=== PATIENT | female | born 1990 | race Caucasian/White ===

== ENCOUNTER 2017-01-26 06:13 | Emergency (ER) | payer OTHER ==
--- NOTE | 2017-01-26 06:40 | ERNOTE ---
Abdominal HPI - General Chief Complaint: OB Screening Time Seen by Provider: 01/26/17 06:37 Source: patient Exam Limitations: no limitations - Immun/Allergies/Home Medications Immunizatons: IMMUNIZATION HX Immunizations Up to Date Yes History of Influenza Vaccine No Hx Pneumococcal Vaccination No Allergies/Adverse Reactions: Allergies amoxicillin Adverse Reaction (Verified 01/26/17 07:17) Home Medications: HOME MEDICATIONS NK [No Home Medication] 01/26/17 [Last Taken Unknown] - History of Present Illness Narrative: Pt is 6 wk GA and has been spotting for 5 days. Overnight she began bleeding and passing clots. Pt saw OB yesterday and had HCG drawn. Blood type received from [facility] where she delivered her first child and is A+. Timing: getting worse Quality: moderate, cramping Activities at Onset: sleep Associated Symptoms: Present: denies symptoms Prior Abdominal Problems: Present: none Review of Systems - Review of Systems Constitutional: Absent: recent illness, fever EYE: Present: no symptoms reported ENT: Present: no symptoms reported Respiratory: Present: no symptoms reported Cardiology: Present: no symptoms reported Gastrointestinal/Abdominal: Absent: abdominal pain Genitourinary: Present: See HPI Musculoskeletal: Present: no symptoms reported Skin: Present: no symptoms reported Neurological: Present: no symptoms reported Endocrine: Present: no symptoms reported Hematologic/Lymphatic: Present: no symptoms reported Psych: Present: no symptoms reported - Patient's Past Medical History Patient History - Medical: No pertinent hx Patient History - Cardiac/Respiratory: No pertinent hx Patient History - Cancer: No Hx of Cancer Patient History - Surgical Procedures: No surgical history Patient History - Other: None LMP (females 10-50): LMP (Calendar): 12/14/16 - Social History Living Situations: home Abuse History: No History of abuse Psych History: No pertinent hx Smoking Status: Never smoker Alcohol Use: none Drug Use: none - Immunizations Immunizations Up to Date: Yes Hx Pneumococcal Vaccination: No History of Influenza Vaccine: No Physical Exam - Physical Exam General Appearance: Present: wd/wn, alert, no apparent distress Head Exam: Present: normal inspection Eye Exam: Normal inspection: bilateral Extremity Exam: Present: normal inspection, normal range of motion, no edema Neurological Exam: Present: alert, oriented, normal mood/affect Skin Exam: Present: normal color, warm/dry Pelvic Exam: Present: active bleeding - dark blood and clots in vag. vault. Small amount of vessels or tissue in the cervical os. Os closed. Absent: cervical motion tendernes, tender adnexa ED Progress - Results and Orders Patient's Lab Results:: I have reviewed the patient's lab results. Results and Orders: Laboratory Tests 01/26/17 07:15 WBC 10.6 H Hgb 13.3 Hct 38.6 Plt Count 211 Neutrophils % 77.1 H - Vital Signs Patient's Vital Signs:: I have reviewed the patient's vital signs. Vital Signs: Vital Signs 01/26/17 06:19 Temperature 37.0 C Pulse Rate 115 H Respiratory 16 Rate Blood Pressure 109/53 O2 Sat by Pulse 96 Oximetry - Progress/Reassessment Chief Complaint: OB Screening Progress Note-Subjective: 01/26/17 07:49 discussed vag bleeding and risk of miscarriage. Discussed when to return if bleeding increases. Pt and mother express understanding Departure - Departure Clinical Impression: Miscarriage, threatened, early Disposition: Home Follow Up Needed Condition: Fair Instructions: Threatened Miscarriage, [id number] Additional Instructions: Talk with Dr. Weir about repeating the lab work they did yesterday. Follow up as needed Referrals: María Weir DO [Primary Care Provider] -
[2017-01-26 07:22] LABS: Hematocrit 38.6 % (37.0-47.0); Hemoglobin 13.3 gm/dL (12.5-16.0); Mean Cell Volume 80.2 fl (78-100); Mean Corpuscular Hemoglobin 27.7 pg (27-31); Mean Corpuscular Hgb Conc 34.5 g/dl (32-36); Mean Platelet Volume 11.7 fl (6.0-9.5); Neutrophil # 8.1 K/mm3 (1.3-6.0); Neutrophil % 77.1 % (42-75.0); Platelet Count 211 K/mm3 (150-450); Red Blood Count 4.81 M/mm3 (4.2-5.4); Red Cell Distribution Width 12.6 % (11.5-14.0); White Blood Count 10.6 K/mm3 (4.0-10.5)
[2017-01-26] MEDS ORDERED: ACETAMINOPHEN 500 MG TABLET PO ONE (07:29)
[2017-01-26 07:35] VITALS: BP 105/68
== END 2017-01-26 07:50 | disposition home or self-care (01) ==
LOC: ER 06:13
DX: O20.0 Threatened abortion (principal); Z3A.01 Less than 8 weeks gestation of pregnancy; Z33.1 Pregnant state, incidental

== ENCOUNTER 2019-09-05 19:54 | Inpatient (IN) ==
[2019-09-05] MEDS ORDERED: RINGER'S SOLUTION,LACTATED 1,000 ML IV ONE (21:11)
[2019-09-05] MEDS ORDERED: OXYTOCIN/DEXTROSE 5%-WATER 30 UNITS/500 ML BAG IV ONE (21:11)
[2019-09-05] MEDS ORDERED: ONDANSETRON 4 MG TAB.RAPDIS PO PRN (21:11)
[2019-09-05] MEDS ORDERED: RINGER'S SOLUTION,LACTATED 1,000 ML IV PRN (21:11)
--- NOTE | 2019-09-05 21:53 | HP ---
Chief Complaint - Chief Complaint Date of Service: 09/05/19 Time of Service: 21:38 Chief Complaint: Labor History of Present Illness: 28 year old at 39w 3d who presents to labor and delivery in labor. She reports regular ctx. She reports bloody show but no heavy vaginal bleeding. Denies lof. Fetus is active. No other complaints Medical History (Last Reviewed 09/05/19 @ 21:43 by Ita Cruz MD) Anemia Onset Date: 09/21/17 2018 & 2019-w/pregnancies Body piercing Onset Date: Unknown Hemorrhoids Onset Date: Unknown Scoliosis Onset Date: Unknown mild-no tx Tattoos Onset Date: Unknown Hypoglycemia Onset Date: Unknown as child Onset Date: 05/25/17 delivery Onset Date: 11/26/17 36 wks, PROM premature rupture of membranes Onset Date: 11/26/17 11/26/2017 SAB (spontaneous ) Onset Date: 02/17/17 Surgical History: Surgical History (Last Reviewed 09/05/19 @ 21:43 by Ita Cruz MD) No significant past surgical history Family History: Family History (Last Reviewed 09/05/19 @ 21:43 by Ita Cruz MD) Grandmother Heart disease Mother COPD (chronic obstructive pulmonary disease) Ectopic Father Medical history unknown Social History: (Last Reviewed 09/05/19 @ 21:44 by Ita Cruz MD) Social History: adopted: No mcc: No Marital status: household members: children, spouse number of children: 2 current occupational status: employed current occupation: Cleaning current occupational exposures/hazards: No Highest education level completed: high school graduate Sexually Active: Yes Service: No Tobacco: Smoking Status: Former smoker Alcohol: alcohol intake: never Substance Use: substance use type: former substance user Dietary Habits: caffeine: Yes caffeine comment: 3-5/day Type: carbonated beverages, coffee, tea Exercise: frequency: other Jeannie/Buddhism: agree to transfusion: Yes Review Of Systems (GEN) - Review of Systems Generalized/Overall Review: Present: No Symptoms Reported Misc: All systems neg except as marked Immunizations: IMMUNIZATION HX Immunizations Up to Date Yes History of Influenza Vaccine No Hx Pneumococcal Vaccination No Allergies/Adverse Reactions: Allergies Allergy/AdvReac Type Severity Reaction Status Date / Time amoxicillin AdvReac rash Verified 09/05/19 20:00 Home Medications: HOME MEDICATIONS [id number] 400 mcg-om3 35 mg-dha 25 mg-epa 5 mg-fish oil chewable tablet 2 tab PO DAILY tab 01/25/19 [Last Taken 09/04/19 22:00] ferrous sulfate 325 mg (65 mg iron) tablet 325 mg PO DAILY #30 tab 06/05/19 [Last Taken 09/04/19 22:00] Exam - Exam Vital Signs: Vital Signs - Last Taken Temp 36.7 C 09/05/19 21:02 Pulse 81 09/05/19 21:02 Resp 18 09/05/19 21:02 BP 124/82 09/05/19 21:02 Pulse Ox 98 09/05/19 21:02 Constitutional: Present: Alert, Oriented x3, Cooperative, No distress ENT Exam: Present: hearing grossly normal Eye Exam: bilateral eye: normal inspection Neck: Present: normal inspection Back Exam: Present: normal inspection, no CVA tenderness, no vertebral tenderness Breasts: Present: Exam deferred Respiratory: Present: lungs clear, normal breath sounds Cardiovascular/Chest: Present: regular rate, rhythm Abdomen: Present: Normal bowel sounds, soft, nontender, nondistended /Rectal: Present: Other - 4/60/-3 AROM for light meconium Extremity: Present: non-tender, no calf tenderness Skin Exam: Present: normal color, warm/dry, no cyanosis Appearance: Present: appropriate appearance Eye contact: Present: cooperative, good eye contact, normal speech Thoughts: Present: normal thought pattern Assessment/Plan - Narrative Narrative: 28 year old at 39w 3d 1. Admit for labor. AROM done. Pitocin PRN 2. History of THC use this : UDS on admission, send cord segment at delivery 3. Anemia: on PO iron 4. GBS negative: prophylaxis not indicated FHT cat 1 - Assessment/Plan (1) 39 weeks gestation of Problem: Acute (2) Anemia Problem: Acute Qualifiers: Anemia type: unspecified type Qualified Code(s): D64.9 - Anemia, unspecified (3) History of marijuana use Assessment: UDS on admission to L&D Cord segment will be sent at delivery Problem: Acute
[2019-09-05 22:11] LABS: Cocaine Ur Negative (NEGATIVE); Urine Barbiturate Negative (NEGATIVE); Urine Benzodiazepines Negative (NEGATIVE); Urine Opiates Negative (NEGATIVE); Urine PCP Negative (NEGATIVE); Urine THC Negative (NEGATIVE)
[2019-09-05] MEDS ORDERED: ONDANSETRON HCL/PF 2 MG/ML VIAL IV PRN (22:26)
[2019-09-05] MEDS ORDERED: BUPIVACAINE HCL/0.9 % NACL/PF 250 ML EP PRN (22:26)
[2019-09-05] MEDS ORDERED: NALOXONE HCL 1 MG/1 ML SYRG IV PRN (22:26)
[2019-09-05] MEDS ORDERED: fentaNYL CITRATE/PF 50 MCG/ML AMPUL IT SCH (22:30)
--- NOTE | 2019-09-06 00:20 | ANES ---
Anesthesia Pre Procedure Eval Vitals/Labs: Last Vital Signs Temp 36.7 C 09/05/19 21:02 Pulse 81 09/05/19 21:02 Resp 18 09/05/19 21:02 BP 124/82 09/05/19 21:02 Pulse Ox 98 09/05/19 21:02 HOME MEDICATIONS [id number] 400 mcg-om3 35 mg-dha 25 mg-epa 5 mg-fish oil chewable tablet 2 tab PO DAILY tab 01/25/19 [Last Taken 09/04/19 22:00] ferrous sulfate 325 mg (65 mg iron) tablet 325 mg PO DAILY #30 tab 06/05/19 [Last Taken 09/04/19 22:00] Allergies/Adverse Reactions: Allergies Allergy/AdvReac Type Severity Reaction Status Date / Time amoxicillin AdvReac rash Verified 09/05/19 20:00 - Planned Procedure Planned Procedure: LABOR Medication List Reviewed:: Yes Allergies Verified: Yes Medical History (Last Reviewed 09/06/19 @ 00:19 by Presley Burr CRNA) Anemia Onset Date: 09/21/17 2018 & 2019-w/pregnancies Body piercing Onset Date: Unknown Hemorrhoids Onset Date: Unknown Scoliosis Onset Date: Unknown mild-no tx Tattoos Onset Date: Unknown Hypoglycemia Onset Date: Unknown as child Onset Date: 05/25/17 delivery Onset Date: 11/26/17 36 wks, PROM premature rupture of membranes Onset Date: 11/26/17 11/26/2017 SAB (spontaneous ) Onset Date: 02/17/17 Surgical History (Last Reviewed 09/06/19 @ 00:19 by Presley Burr CRNA) No significant past surgical history Family History (Last Reviewed 09/06/19 @ 00:19 by Presley Burr CRNA) Grandmother Heart disease Mother COPD (chronic obstructive pulmonary disease) Ectopic Father Medical history unknown - Family Anesthesia History Family History:: no untoward family reactions to anesthesia, no familial bleeding tendencies, no family history of clotting disorders, no family history of premature - Airway/Neck/Teeth Within Normal Limits:: Yes Teeth Condition: intact Neck Exam: full range of motion Mallampatti Score: 2 Thyromental (T-M) distance: > 6 cm Mandibulo Hyoid distance: > 3 cm - Respiratory Respiratory History: asthma Respiratory Physical: lungs clear Sleep Apnea currently treated: No Sleep Apnea by current assessment: No - Cardiovascular Tolerate Activity: Fair Heart Sounds: S1 & S2, Regular - Gastrointestinal NPO since: admission - Anesthesia Assessment and Plan ASA Class: PS, II, E Anesthesia Type Plan: Epidural - CSE for labor analgesia, Hx scoliosis
--- NOTE | 2019-09-06 00:44 | ANES ---
Post Anesthesia Discharge - Transfer of Care Transfer of Care handoff given to nurse: Yes - Discharge from PACU Discharge from PACU when meets criteria: Yes - Comfortable post CSE.
--- NOTE | 2019-09-06 00:46 | ANES ---
Anesthesia Procedure Note Procedure Note: ANESTHESIA PROCEDURE NOTE Date of Procedure: [09/06/2019 Time of procedure: 12:20 AM. Performed by: JÚNIOR Wadsworth CRNA, MSN General Engineer: Susan Sawyer RN. Preprocedure diagnosis: Active labor, labor pain. Post procedure diagnosis: Same. Procedure:Epidural for labor analgesia L4-5. Indications: Labor pain. Findings: See below. Details of the procedure: The patient was placed on the side of the bed in sitting positionand prepped with DuraPrep then draped in a sterile fashion. Lidocaine 1% was infiltrated to the skin and subcutaneous tissues at the level of the L4-5 interspace. An 18-gauge Touhy needle was used to approach the epidural space with loss of resistance technique. Once loss of resistance was achieved a 27-gauge spinal needle was passed through the epidural needle and CSF was contacted. After CSF returned, 20 mcg of fentanyl was injected in the spinal needle was removed the epidural catheter was then threaded approximately 4 cm in the epidural needle was removed. The catheter was taped in place and after careful aspiration 3 mL of 1.5% lidocaine with 1-200,000 epinephrine was injected without change in maternal heart rate or sensorium. . EBL: Minimal. Fluids: N/A. Specimen: N/A. Post procedure condition: The patient tolerated the procedure well with good relief. No complications were noted. Thank you for this consultation. Presley Burr CRNA, JÚNIOR, MSN
--- NOTE | 2019-09-06 00:54 | ANES ---
Post Anesthesia Assessment - Vital Signs Vitals: Last Vital Signs Temp 36.7 C 09/05/19 21:02 Pulse 81 09/05/19 21:02 Resp 18 09/05/19 21:02 BP 124/82 09/05/19 21:02 Pulse Ox 98 09/05/19 21:02 Airway Patency: Normal - Mental Status Level Of Consciousness: Awake, Alert, Appropriate - Pain Level Pain Score: 0 - N/V Assessment Nausea/Vomiting Presence: None Dehydration:: No
[2019-09-06] MEDS ORDERED: BENZOCAINE/MENTHOL 81 SPRAY CAN TP PRN (02:32)
[2019-09-06] MEDS ORDERED: SENNOSIDES 8.6 MG TABLET PO PRN (02:32)
[2019-09-06] MEDS ORDERED: diphenhydrAMINE HCL 25 MG CAPSULE PO PRN (02:32)
[2019-09-06] MEDS ORDERED: OXYTOCIN/DEXTROSE 5%-WATER 30 UNITS/500 ML BAG IV ONE (02:32)
[2019-09-06] MEDS ORDERED: HYDROcodone/ACETAMINOPHEN 1 EACH TABLET PO PRN (02:32)
[2019-09-06] MEDS ORDERED: GLYCERIN/WITCH HAZEL LEAF 40 APPL BOX TP PRN (02:32)
[2019-09-06] MEDS ORDERED: HYDROCORTISONE 30 APPL TUBE TP PRN (02:32)
[2019-09-06] MEDS ORDERED: BISACODYL 10 MG SUPP.RECT RC PRN (02:32)
--- NOTE | 2019-09-06 02:32 | OR ---
Operative Report - Dictated Report Narrative: Date of delivery: 09/06/2019 Time of delivery: 209 Gender: male weight: 3858 grams APGARS: 03/05 Procedure: Description of the procedure: The patient is a 28 year old now at 39w 4d who presented to labor and delivery in labor. She was augmented with AROM and pitocin at 1 milliunit/minute. She progressed to complete dilation. She delivered a viable male infant in the direct OA presentation. The shoulders delivered spontaneously followed by the rest of the . Cord clamping was delayed for 60 seconds. The cord was clamped and cut. The placenta was delivered by expression and appeared intact. A first degree perineal laceration was repaired in the usual standard fashion. Hemostasis was adequate. EBL: 200 mL Complications: none Specimens: none History for MU Definition: * The number of deliveries resulting in a live the patient experienced prior to current hospitalization * The previous delivery of live twins or any live multiple gestation is considered one live event. *If primagravida or nulliparous is documented select zero for the number of previous live births. Live Events: 2
[2019-09-06] MEDS ORDERED: MISOPROSTOL 200 MCG TABLET RC ONE (02:50)
[2019-09-06] MEDS: IBUPROFEN 800 MG TABLET PO PRN ×3 (03:58→18:33)
[2019-09-06] MEDS: HYDROcodone/ACETAMINOPHEN 1 EACH TABLET PO PRN ×4 (08:21→23:43)
[2019-09-06] MEDS: DOCUSATE SODIUM 100 MG CAPSULE PO SCH (12:03)
[2019-09-07] MEDS: DOCUSATE SODIUM 100 MG CAPSULE PO SCH ×4 (01:08→20:12)
[2019-09-07] MEDS: IBUPROFEN 800 MG TABLET PO PRN ×4 (01:45→22:19)
[2019-09-07] MEDS: HYDROcodone/ACETAMINOPHEN 1 EACH TABLET PO PRN ×4 (06:32→20:11)
--- NOTE | 2019-09-07 08:02 | PN ---
Subjective - Date and Time Seen Date: 09/07/19 Time: 08:01 Subjective Narrative: Patient without complaints Objective Objective Narrative: See vital signs - Review of Systems Generalized/Overall Review: Reports: No Symptoms Reported Misc: All systems neg except as marked - Vitals Vitals: Last Vital Signs Temp 35.2 C L 09/07/19 06:45 Pulse 72 09/07/19 06:45 Resp 18 09/07/19 06:45 BP 121/83 09/07/19 06:45 Pulse Ox 100 09/07/19 06:45 - Exam Constitutional: Present: Alert, Oriented x3, Cooperative Abdomen: Present: soft, nontender, nondistended - fundus is firm Extremity: Present: non-tender, no calf tenderness Skin Exam: Present: normal color, warm/dry, no cyanosis Appearance: Present: appropriate appearance Eye contact: Present: cooperative Thoughts: Present: normal thought pattern Cauti Physician Documentation - Urinary Catheter Management Urethral (Schwab) Urethral Indwelling: No Date of Insertion: 09/06/19 Time of Insertion: 01:00 Date of Removal: 09/06/19 Time of Removal: 02:00 Assessment/Plan Plan Narrative: PPD 1 s/p Doing well Discharge tomorrow - Problems/Diagnosis (1) 39 weeks gestation of Problem: Acute (2) Anemia Problem: Acute Qualifiers: Anemia type: unspecified type Qualified Code(s): D64.9 - Anemia, unspecified (3) History of marijuana use Problem: Acute
[2019-09-08] MEDS: IBUPROFEN 800 MG TABLET PO PRN (04:44)
[2019-09-08 07:46] VITALS: BP 126/83
[2019-09-08] MEDS: HYDROcodone/ACETAMINOPHEN 1 EACH TABLET PO PRN (09:39)
--- NOTE | 2019-09-08 13:20 | PN ---
Subjective - Date and Time Seen Date: 09/08/19 Time: 13:19 Objective - Vitals Vitals: Last Vital Signs Temp 36.1 C 09/08/19 07:41 Pulse 84 09/08/19 07:41 Resp 18 09/08/19 07:41 BP 126/83 09/08/19 07:41 Pulse Ox 99 09/08/19 07:41 Patient denies complaints. Bottlefeeding. Lochia wnl abdomen - soft, nontender Uterus -firm, at umbilicus - 2 no calf tenderness Impression: day #2 - s/p spontaneous vaginal delivery. Plan: Routine discharge instructions Cauti Physician Documentation - Urinary Catheter Management Urethral (Schwab) Urethral Indwelling: No Date of Insertion: 09/06/19 Time of Insertion: 01:00 Date of Removal: 09/06/19 Time of Removal: 02:00
== END 2019-09-08 13:05 | disposition home or self-care (01) | DRG 806 ==
LOC: OBCLINIC 19:54 → OB 21:37
PROVIDERS: ADMIT Obstetrics & Gynecology; ATTEND Obstetrics & Gynecology
CPT/HCPCS: 59025; 80307